=== PATIENT | male | born 1980 | race African-American/Black ===

== ENCOUNTER 2019-03-02 13:34 | Emergency (ER) | payer OTHER ==
[~2019-03-02] VITALS: Ht 160 cm; Wt 63.5 kg
[2019-03-02] MEDS ORDERED: CYCLOBENZAPRINE5 MG PO (15:53)
[2019-03-02] MEDS ORDERED: NAPROSYN500 MG PO (15:53)
== END 2019-03-02 16:20 | disposition home or self-care (01) ==
LOC: ED 13:34
DX: S39.012A Strain of muscle, fascia and tendon of lower back, initial encounter (principal); Z88.0 Allergy status to penicillin; X58.XXXA Exposure to other specified factors, initial encounter
CPT/HCPCS: 36415; 74177; 80053; 81001; 83690; 85025; 85610; 99284-25; J7030

== ENCOUNTER 2019-05-15 20:07 | Emergency (ER) | payer OTHER ==
[~2019-05-15] VITALS: Ht 160 cm; Wt 72.6 kg
[~2019-05-15 20:07] MED LIST: CYCLOBENZAPRINE5 MG PO; NAPROSYN500 MG PO
== END 2019-05-16 00:01 | disposition home or self-care (01) ==
LOC: ED 20:07
DX: T71.9XXA Asphyxiation due to unspecified cause, initial encounter (principal); I10 Essential (primary) hypertension; Z87.891 Personal history of nicotine dependence; Z88.0 Allergy status to penicillin
CPT/HCPCS: 70450; 70491; 80053; 80176; 81001; 84443; 85025; 99284-25; G0480